=== PATIENT | female | born 1960 | race Caucasian/White ===

== ENCOUNTER → 2016-12-27 | Outpatient (CLI) | payer MEDICARE, OTHER ==
[2016-12-27 11:52] LABS: HEMOGLOBIN 14.6 g/dL (12.2-16.2); LYMPH # 0.9 K/mm3 (0.7-4.5); LYMPH % 6.7 % (10-50.0)
[2016-12-27 12:56] LABS: BUN 18 mg/dL (7-18)
[2016-12-27 12:59] LABS: GFR (ESTIMATED) 57 ML/MIN (59-)
[2016-12-27 13:31] LABS: NEUTROPHILS 84 % (42-76)
== END ==
LOC: LAB 10:50
PROVIDERS: Nurse Practitioner
DX: M06.9 Rheumatoid arthritis, unspecified (principal)

== ENCOUNTER → 2017-02-07 | Outpatient (CLI) | payer MEDICARE, OTHER ==
[~2017-02-07] MED LIST: ATENOLOL50 MG PO; BUSPIRONE10 MG PO; CAPTOPRIL PO; FOLIC ACID 1MG T1 MG PO; FUROSEMIDE40 MG PO; HYOMAX-SL0.125 MG SL; LORATADINE 10MG10 M1 PO; METHOTREXATE 22.5 MG PO; METOCLOPRAMIDE10 MG PO; PRAVACHOL 40MG40 MG PO; PREDNISONE 1MG.1 MG PO; SYMBICORT1 AER; VERAPAMIL HCL40 MG PO
--- NOTE | 2017-02-13 16:02 | RADIOLOGY REPORT PS360 ---
DEXA SCAN.-BONE DENSITY STUDY LUMBAR SPINE HISTORY: Postmenopausal female 56-year-old. Ankle fractures. Hip replacements. Bilateral hip replacement and question previous wrist fracture TECHNIQUE: DEXA scan lumbar spine only due to hip replacements. The most complete data summary and color graphic presentation of the today's ( and any prior ) DEXA findings are available in PACS. Definition and treatment guidelines included. COMPARISON: None at this facility Data from previous [facility] DEXA scan available in PACS. LUMBAR SPINE: L4 vertebral body demonstrates the lowest T score 1.4 with BMD1.488 g/cm sq All other L1-L4 vertebral body levels yield a greater than 2.5 T score Overall mean lumbar L1-L4 T score 2.6 with BMD1.488 g/cm sq . 2011 prior DEXA the mean T score 0.9 with BMD was 1.159g/cm sq and Z score 1.7. Patient normal bone density at that time. Today's measurements suggesting no significant bone loss with axial increased density at most levels levels since that outside study. HIPS: Not sampled of the hip replacements. IMPRESSION 1. LUMBAR SPINE only was sampled. Normal.Bone density overall lumbar spine. Overall lumbar T score 2.6 Also note normal bone density at each individual vertebral L1-L4 2. HIPS: Not sampled due to previous hip replacements WHO criteria for post-menopausal, Women: Normal: T-score at or above -1 SD Osteopenia: T-score between -1 and -2.5 SD Osteoporosis: T-score at or below -2.5 SD
== END ==
LOC: RAD 12:58
DX: M81.0 Age-related osteoporosis without current pathological fracture (principal)